=== PATIENT | female | born 1980 | race Caucasian/White ===

== ENCOUNTER 2020-09-03 07:59 | Outpatient (REF) | payer OTHER, SELFPAY ==
--- NOTE | 2020-09-03 | US_ITS ---
EXAMINATION: US ABDOMEN COMPLETE CLINICAL INFORMATION: Liver lesion. COMPARISON: Abdominal ultrasound dated 05/10/2019. TECHNIQUE: Real-time imaging of the abdominal viscera. FINDINGS: PANCREAS: Normal. ABDOMINAL AORTA: The proximal, mid, and distal segments are normal in caliber. INFERIOR VENA CAVA: Visualized portions are normal. LIVER: The liver is normal in size. The liver is normal size, shape, contour. There is diffuse increase in cortical echogenicity without intrahepatic ductal dilatation. There is a complex anechoic cyst left hepatic lobe measuring 0.94 x 0.93 x 0.8 cm. Previously it measured 1.1 x 0.90 x 1.1 cm. GALLBLADDER: Normal. The gallbladder is physiologically distended without evidence of stones, sludge, polyps, wall thickening or pericholecystic fluid. COMMON BILE DUCT: Normal in caliber measuring 0.2 cm in diameter. RIGHT KIDNEY: Normal. No hydronephrosis. No renal calculi or focal parenchymal lesions. The kidney measures 10.4 cm in maximum dimension. LEFT KIDNEY: Normal. No hydronephrosis. No renal calculi or focal parenchymal lesions. The kidney measures 10.4 cm in maximum dimension. SPLEEN: Normal. The spleen measures 9.8 cm in maximum dimension. FREE FLUID: None. IMPRESSION: Complex cyst left hepatic lobe, stable. The rest of abdomen ultrasound exam is unremarkable.
== END 2020-09-03 08:00 | disposition home or self-care (01) ==
LOC: HO.US 07:59
PROVIDERS: PCP Internal Medicine; Visit Provider Internal Medicine
DX: K76.9 Liver disease, unspecified (principal)
CPT/HCPCS: 76700

== ENCOUNTER 2021-11-23 10:57 | Outpatient (REF) | payer OTHER, SELFPAY ==
[2021-11-23 10:59] LABS: MANUAL DIFF FLAG NO
[2021-11-23 11:17] LABS: Basophils Percent Auto 0.1 % (0-2); Eosinophils Absolute Auto 0.4 X10*3/uL (0.0-0.4); Eosinophils Percent Auto 5.2 % (0-4); Hematocrit 38.8 % (37.0-47.0); Hemoglobin 12.3 g/dl (12.0-16.0); Imm Gran Abs Auto 0.02 X10*3/uL (0.00-0.03); Imm Gran Pct Auto 0.3 % (0.0-0.4); Lymphocytes Absolute Auto 2.5 X10*3/uL (1.2-4.9); Lymphocytes Percent Auto 34.2 % (20-40); Mean Corpuscular HGB Conc 31.7 g/dl (31.0-35.0); Mean Corpuscular Hemoglobin 29.7 pg (27.0-33.0); Mean Corpuscular Volume 93.7 fL (80.0-98.0); Mean Platelet Volume 10.2 fL (9.4-12.3); Monocytes Absolute Auto 0.5 X10*3/uL (0.1-1.2); Monocytes Percent Auto 6.1 % (2-11); Neutrophils Percent Auto 54.1 % (45-73); Platelet Count 305 X10*3/uL (160-400); Red Blood Count 4.14 X10*6/uL (4.20-5.50); Red Cell Distribution Width 12.8 % (11.0-16.0); White Blood Count 7.4 X10*3/uL (4.8-10.8)
[2021-11-23 11:43] LABS: Alanine Aminotransferase 15 U/L (0-31); Albumin Level 3.7 g/dL (3.5-5.0); Alkaline Phosphatase 64 U/L (39-117); Anion Gap 8 (12-20); Aspartate Amino Transferase 17 U/L (5-31); Bilirubin Total 0.4 mg/dL (0.0-1.0); Blood Urea Nitrogen 10 mg/dL (9-16); Calcium 9.6 mg/dL (8.4-10.2); Carbon Dioxide 27 mmol/L (22-29); Chloride 109 mmol/L (96-108); Cholesterol 199 mg/dL; Estimated Glomerular Filt Rate > 60; Glucose Fasting 91 mg/dL (60-99); HDL Cholesterol 68 mg/dL; LDL Cholesterol Calculated 97 mg/dl; Potassium 4.1 mmol/L (3.3-5.1); Sodium 140 mmol/L (135-145); Total Protein 6.9 g/dL (6.5-8.0); Triglycerides 170 mg/dL
== END 2021-11-23 10:58 | disposition home or self-care (01) ==
LOC: HO.LNP 10:57
PROVIDERS: Visit Provider Internal Medicine
DX: Z00.00 Encounter for general adult medical examination without abnormal findings (principal); K76.9 Liver disease, unspecified; R31.9 Hematuria, unspecified
CPT/HCPCS: 80053; 80061; 85025

== ENCOUNTER 2023-04-07 16:06 | Outpatient (REF) | payer OTHER, SELFPAY ==
[2023-04-07 16:18] LABS: Appearance Urine Clear; Color Urine Yellow; Glucose Urine UA Negative (Negative); Leukocyte Esterase Urine Large (3+) (Negative); Nitrite Urine Negative (Negative); PH 5.5 (5.0-9.0); Specific Gravity - Urine <= 1.005 (1.005-1.025); UMIC TRIGGER UACC YES; Urine Blood Moderate (2+) (Negative); Urine Ketones Negative (Negative); Urine Protein Negative (Neg-Trace)
[2023-04-07 16:40] LABS: Bacteria Urine Trace (None Seen); Hyaline Casts Urine 0-2 /LPF (0-2); RBC Urine 0-2 /HPF (0-2); Squamous Epithelial Cell Urine 0-2 /HPF (0-2); UACC Culture Trigger YES
== END 2023-04-07 16:07 | disposition home or self-care (01) ==
LOC: HO.LNP 16:06
PROVIDERS: Visit Provider Internal Medicine
DX: N39.0 Urinary tract infection, site not specified (principal)
CPT/HCPCS: 81001; 87086

== ENCOUNTER 2023-04-29 10:43 | Outpatient (REF) | payer OTHER, SELFPAY ==
[2023-04-29 11:04] LABS: Appearance Urine Cloudy; Color Urine Yellow; Glucose Urine UA Negative (Negative); Leukocyte Esterase Urine Negative (Negative); Nitrite Urine Negative (Negative); Specific Gravity - Urine 1.025 (1.005-1.025); Urine Blood Negative (Negative); Urine Ketones Negative (Negative); Urine Protein Trace mg/dL (Neg-Trace)
[2023-04-29 11:22] LABS: Bacteria Urine Trace (None Seen); Hyaline Casts Urine 0-2 /LPF (0-2); RBC Urine 0-2 /HPF (0-2); Squamous Epithelial Cell Urine >20 /HPF (0-2); WBC Urine 0-5 /HPF (0-5)
== END 2023-04-29 10:44 | disposition home or self-care (01) ==
LOC: HO.LNP 10:43
PROVIDERS: Visit Provider Internal Medicine
DX: N39.0 Urinary tract infection, site not specified (principal)
CPT/HCPCS: 81001

== ENCOUNTER 2024-01-09 15:51 | Outpatient (REF) | payer OTHER, SELFPAY ==
[2024-01-09 16:37] LABS: Appearance Urine Turbid; Color Urine Yellow; Glucose Urine UA Negative (Negative); Leukocyte Esterase Urine Moderate (2+) (Negative); Nitrite Urine Negative (Negative); PH 7.5 (5.0-9.0); Specific Gravity - Urine 1.015 (1.005-1.025); UMIC TRIGGER UA YES; Urine Blood Large (3+) (Negative); Urine Ketones Negative (Negative); Urine Protein 100 (2+) mg/dL (Neg-Trace)
[2024-01-09 16:40] LABS: Bacteria Urine None Seen (None Seen); Hyaline Casts Urine 0-2 /LPF (0-2); RBC Urine >20 /HPF (0-2); WBC Urine >50 /HPF (0-5)
== END 2024-01-09 15:52 | disposition home or self-care (01) ==
LOC: HO.LNP 15:51
PROVIDERS: Visit Provider Internal Medicine
DX: N39.0 Urinary tract infection, site not specified (principal)
CPT/HCPCS: 81001; 87086; 87088; 87186

== ENCOUNTER 2024-02-07 10:42 | Outpatient (REF) | payer OTHER, SELFPAY ==
[2024-02-07 12:15] LABS: Appearance Urine Turbid; Color Urine Yellow; PH 7.5 (5.0-9.0)
[2024-02-07 12:16] LABS: Glucose Urine UA Negative (Negative); Leukocyte Esterase Urine Moderate (2+) (Negative); Nitrite Urine Negative (Negative); RBC Urine 0-2 /HPF (0-2); Specific Gravity - Urine 1.015 (1.005-1.025); UMIC TRIGGER UACC YES; Urine Blood Large (3+) (Negative); Urine Ketones Negative (Negative); Urine Protein 100 (2+) mg/dL (Neg-Trace); WBC Urine 0-5 /HPF (0-5)
[2024-02-07 12:17] LABS: Bacteria Urine 1+ (None Seen); Hyaline Casts Urine 0-2 /LPF (0-2); Squamous Epithelial Cell Urine 0-2 /HPF (0-2)
== END 2024-02-07 10:43 | disposition home or self-care (01) ==
LOC: HO.LNP 10:42
PROVIDERS: Visit Provider Internal Medicine
DX: N39.0 Urinary tract infection, site not specified (principal); R31.9 Hematuria, unspecified
CPT/HCPCS: 81001

== ENCOUNTER 2024-02-17 11:00 | Outpatient (REF) | payer OTHER, SELFPAY ==
[2024-02-17 12:07] LABS: Appearance Urine Clear; Color Urine Yellow; Glucose Urine UA Negative (Negative); Leukocyte Esterase Urine Negative (Negative); Nitrite Urine Negative (Negative); PH 5.5 (5.0-9.0); Urine Blood Negative (Negative); Urine Ketones Negative (Negative); Urine Protein Negative (Neg-Trace)
[2024-02-17 12:12] LABS: Bacteria Urine None Seen (None Seen); Hyaline Casts Urine 0-2 /LPF (0-2); RBC Urine 0-2 /HPF (0-2); WBC Urine 0-5 /HPF (0-5)
== END 2024-02-17 11:01 | disposition home or self-care (01) ==
LOC: HO.LNP 11:00
PROVIDERS: Visit Provider Internal Medicine
DX: R31.9 Hematuria, unspecified (principal)
CPT/HCPCS: 81001

== ENCOUNTER 2024-06-01 22:33 | Emergency (ER) | payer BC, SELFPAY ==
--- NOTE | 2024-06-01 | ECG_ITS ---
Test Reason : CP Blood Pressure : / mmHG Vent. Rate : 059 BPM Atrial Rate : 059 BPM P-R Int : 140 ms QRS Dur : 092 ms QT Int : 402 ms P-R-T Axes : 062 -37 046 degrees QTc Int : 397 ms Sinus bradycardia Left axis deviation Abnormal ECG When compared with ECG of 11-JAN-2018 22:38, Incomplete right bundle branch block is no longer Present Referred By: Generic ED Physician Electronically Signed By:RIVKA CROSS MD
[2024-06-01 22:39] VITALS: BP 120/84; BP 123/83; PULSE 59; PULSE 66; RESP 16; TEMP 36.9; O2SAT 96; O2SAT 98; BMI 23.2
[2024-06-01 23:00] LABS: MANUAL DIFF FLAG NO
[2024-06-01 23:01] LABS: Basophils Percent Auto 0.4 % (0-2); Eosinophils Absolute Auto 0.3 X10*3/uL (0.0-0.4); Eosinophils Percent Auto 2.7 % (0-4); Hematocrit 36.6 % (37.0-47.0); Hemoglobin 12.6 g/dl (12.0-16.0); Imm Gran Abs Auto 0.03 X10*3/uL (0.00-0.03); Imm Gran Pct Auto 0.3 % (0.0-0.4); Lymphocytes Absolute Auto 2.8 X10*3/uL (1.2-4.9); Lymphocytes Percent Auto 25.9 % (20-40); Mean Corpuscular HGB Conc 34.4 g/dl (31.0-35.0); Mean Corpuscular Hemoglobin 31.1 pg (27.0-33.0); Mean Corpuscular Volume 90.4 fL (80.0-98.0); Mean Platelet Volume 9.3 fL (9.4-12.3); Monocytes Absolute Auto 0.7 X10*3/uL (0.1-1.2); Monocytes Percent Auto 6.2 % (2-11); Neutrophils Absolute Auto 6.9 x10*3/uL (2.0-8.3); Neutrophils Percent Auto 64.5 % (45-73); Platelet Count 310 X10*3/uL (160-400); Red Blood Count 4.05 X10*6/uL (4.20-5.50); Red Cell Distribution Width 12.7 % (11.0-16.0); White Blood Count 10.7 X10*3/uL (4.8-10.8)
--- NOTE | 2024-06-01 23:16 | ED.CHESTPAIN ---
HPI - Chest Pain General Chief Complaint: Chest Pain Stated Complaint: chest pain center of chest radiating to back Time Seen by Provider: 06/01/24 23:14 Source: patient Mode of arrival: ambulatory Limitations: no limitations History of Present Illness ED Provider: douglas HPI narrative: Patient with no known cardiac history nonsmoker nonalcoholic work out thin built comes in for 3 days of midsternal chest pain sore with throbbing feeling reproducible on palpation no relation of the pain with exertion no shortness a breath no diaphoresis pain comes and goes lasting only for few minutes no chest pain when examined Related Data Allergies Allergy/AdvReac Type Severity Reaction Status Date / Time No Known Allergies Allergy Verified 06/01/24 22:41 Review of Systems Review of Systems: Yes all other systems are reviewed and are negative [facility] Social History Social History Smoked in Last 30 Days: No Use of substances other than those prescribed or required for medical reasons: No Advance Directives: No Advance Directives Information Provided: No Advance Directives Date on File: 09/03/20 Physical Exam Vital Signs: Vital Signs: Last Vital Signs Temp 98.5 F 06/01/24 23:56 Pulse 59 06/01/24 23:56 Resp 16 06/01/24 23:56 BP 123/83 06/01/24 23:56 Pulse Ox 98 06/01/24 23:56 O2 Del Method Room Air 06/01/24 23:56 BMI result Body Mass Index 23.2 Appearance: Alert. Oriented X3. No acute distress. Eyes: No pallor or icterus ENT: Pharynx normal. Oral Mucosa moist Neck: Normal inspection. Neck supple. CVS: Normal heart rate and rhythm. Pulses normal. Tenderness 2nd intercostal space left side Respiratory: No respiratory distress. Equal air entry bilateral, Abdomen: Soft and nontender. Bowel sounds are present, no mass palpable, no CVA tenderness Skin: Skin warm and dry. Normal skin color. Normal skin turgor. Extremities: No lower extremity edema. No calf tenderness Neuro: Oriented X 3. Medical Decision Making Medical Decision Making [facility] Narrative: Patient has atypical chest pain with low risk factors heart score of 0 EKG without ischemic changes high sensitive troponin negative pain is reproducible likely pain from costochondritis advised to take ibuprofen/Advil, follow up as outpatient Differential Diagnosis Differential Diagnoses: The differential diagnosis associated with the presentation includes Chest wall pain/pericarditis/ACS Lab Data MDM Lab Attestation statement: I reviewed the patient's lab results. 06/01/24 22:55 06/01/24 22:55 Labs: Lab Results 06/01/24 Range/Units 22:55 WBC 10.7 (4.8-10.8) X10*3/uL RBC 4.05 L (4.20-5.50) X10*6/uL Hgb 12.6 (12.0-16.0) g/dl Hct 36.6 L (37.0-47.0) % MCV 90.4 (80.0-98.0) fL MCH 31.1 (27.0-33.0) pg MCHC 34.4 (31.0-35.0) g/dl RDW 12.7 (11.0-16.0) % Plt Count 310 (160-400) X10*3/uL MPV 9.3 L (9.4-12.3) fL Immature Gran % (Auto) 0.3 (0.0-0.4) % Neut % (Auto) 64.5 (45-73) % Lymph % (Auto) 25.9 (20-40) % Taney % (Auto) 6.2 (2-11) % Eos % (Auto) 2.7 (0-4) % Baso % (Auto) 0.4 (0-2) % Lymph # (Auto) 2.8 (1.2-4.9) X10*3/uL Taney # (Auto) 0.7 (0.1-1.2) X10*3/uL Eos # (Auto) 0.3 (0.0-0.4) X10*3/uL Baso # (Auto) 0.0 (0.0-0.2) X10*3/uL Abs Immat Gran (auto) 0.03 (0.00-0.03) X10*3/uL Absolute Neuts (auto) 6.9 (2.0-8.3) x10*3/uL Absolute Nucleated RBC 0.000 (0.0-0.012) X10*3/uL Nucleated RBC % (auto) 0.0 (0.0-0.2) /100WBC Sodium 140 (135-145) mmol/L Potassium 3.6 (3.3-5.1) mmol/L Chloride 108 (96-108) mmol/L Carbon Dioxide 23 (22-29) mmol/L Anion Gap 13 (12-20) BUN 10 (9-16) mg/dL Creatinine 0.81 (0.5-1.4) mg/dL Estim Creat Clear Calc 83.0 Estimated GFR > 60 Random Glucose 114 (60-115) mg/dL Calcium 9.3 (8.4-10.2) mg/dL Total Bilirubin 0.2 (0.0-1.0) mg/dL AST 13 (5-31) U/L ALT 8 (0-31) U/L Alkaline Phosphatase 94 (39-117) U/L Troponin I High Sens < 2.7 (<3.5-17.0) ng/L Total Protein 6.9 (6.5-8.0) g/dL Albumin 3.9 (3.5-5.0) g/dL Independent Interpretation I performed an independent interpretation of an: EKG Interpretation: Sinus bradycardia with heart rate 59 beats per minute left axis deviation no acute ST-T changes no acute ischemia Scores Heart Score History: -0- slightly suspicious ECG: -0- normal Age: -0- < or = 45 Risk factory: -0- no risk factors known Troponin: -0- < or = normal limit Score: 0 Risk: 1.7% Discharge Plan Discharge Clinical Impression: Costalchondritis Patient Disposition: Home, Self-Care Instructions: Costochondritis (ED) Additional Instructions: At this time your workup is negative for significant coronary artery disease Your pain is likely from inflammation of the cartilage Take Advil/Motrin for pain Follow with PCP Interventions: ED Discharge Assessment Last Done: 06/01/24 23:56 Discharge Date/Time: 06/01/24 23:56 Print Language: Romansh
[2024-06-01 23:17] LABS: Alanine Aminotransferase 8 U/L (0-31); Albumin Level 3.9 g/dL (3.5-5.0); Alkaline Phosphatase 94 U/L (39-117); Anion Gap 13 (12-20); Aspartate Amino Transferase 13 U/L (5-31); Bilirubin Total 0.2 mg/dL (0.0-1.0); Blood Urea Nitrogen 10 mg/dL (9-16); Calcium 9.3 mg/dL (8.4-10.2); Carbon Dioxide 23 mmol/L (22-29); Chloride 108 mmol/L (96-108); Estimated Glomerular Filt Rate > 60; Glucose Random 114 mg/dL (60-115); Potassium 3.6 mmol/L (3.3-5.1); Sodium 140 mmol/L (135-145); Total Protein 6.9 g/dL (6.5-8.0)
[2024-06-01 23:26] LABS: Troponin-I High Sensitivity < 2.7 ng/L (<3.5-17.0)
[2024-06-01 23:30] VITALS: PULSE 59
[2024-06-01 23:56] VITALS: BP 123/83; PULSE 59; RESP 16; TEMP 36.9; O2SAT 98
== END 2024-06-01 23:56 | disposition home or self-care (01) ==
LOC: HO.ED 23:49
PROVIDERS: Emergency Provider Internal Medicine; PCP Internal Medicine
DX: M94.0 Chondrocostal junction syndrome [Tietze] (principal)
CPT/HCPCS: 36415; 80053; 84484; 85025; 93005; 99283; 99285

== ENCOUNTER → 2024-06-01 22:36 | Outpatient (BNV) | payer BC, SELFPAY | PROVIDERS: Emergency Provider Internal Medicine; PCP Internal Medicine; Visit Provider Internal Medicine Cardiovascular Disease | DX: R94.31 Abnormal electrocardiogram [ECG] [EKG] (principal) | CPT/HCPCS: 93010 ==

== ENCOUNTER 2025-11-10 22:59 | Emergency (ER) | payer BC, SELFPAY ==
--- OUTSIDE RECORDS SUMMARY | 2024-06-04 09:35 | XMS_ITS ---
Author Organization Jeremy Stewart MD Address [address] [place] [phone] Care Team Providers Care Cement Mixer Name Role Phone Jeremy Stewart Primary Care Provider [phone] REASON FOR VISIT ER Encounters Encounter Location Date Provider Diagnosis Jeremy Stewart MD [address] [place] [phone] 06/04/2024 Jeremy Stewart Plan Of Treatment No Information Progress Notes * Leti CREWS MDOB:[birth year] (43 yo F)Acc No.[id number]:06/04/2024 Patient: Leti HOLDER :1980 A ge:43 Y S ex:Female Address:[address] [place] [id number] * true * Date: Generated for Printi ng/Fabrynng/eTransmitting on: 01:14 AM EST
--- OUTSIDE RECORDS SUMMARY | 2024-10-15 06:30 | XMS_ITS ---
Author Organization Jeremy Stewart MD Address [address] [place] [phone] Care Team Providers Care Medical Liaison Name Role Phone Jeremy Stewart Primary Care Provider [phone] Allergies No Known Allergies REASON FOR VISIT SICK 1 WEEK, SINUS, c/o sore throat cough, sinus pain, sinus congestion Tested negative for Covid 10-13-24, Video [phone] Medications Medication SIG (Take, Route, Frequency, Duration) Notes Start Date End Date Status ProAir HFA 108 (90 Base) MCG/ACT 2 puffs as needed Inhalation every 6 hrs for 30 days 09/08/2018 Not-Taking Ibuprofen 800 MG 1 tablet with food o r milk as needed Orally Three times a day for 30 Not-Grant ing Cymbalta 20 MG 1 capsule Orally Onc e a day Not-Taking LORazepam 1 MG TAKE 1 TABLET BY SURI EVERY DAY AT BEDTIME NEEDED for 30 09/24/2022 Not-Taking Albuterol Sulfate HFA 108 (90 Base) MCG/ACT INHALE 1 PUFF BY MOUTH EVERY 4 HOURS NEEDED for 33 Not-Taking ZyrTEC Allergy 10 MG 1 tablet as needed Orally Once a day Not-Taking Zithromax Z-Palmer 250 MG 2 tablet on the f irst day, then 1 tablet daily for 4 days Orally Once a day for 5 day(s) 10/15/2024 Active DULoxetine HCl 30 MG TAKE 1 CAPSULE BY M OUTH EVERY DAY for 90 Active Tri-Sprintec 0.18/0.215/0.25 MG-35 MCG 1 tablet Orally Once a day for 28 day(s) Active Imitrex 100 MG 1 tablet as needed o ne time Orally Once a day for 7 days 02/06/2016 Not-Taking Vital Signs Height 66 in 10/15/2024 Weight 135 lbs 10/15/2024 BMI 21.79 kg/m2 10/15/2024 weight at home is 135 Encounters Encounter Location Date Provider Diagnosis Jeremy Stewart MD [address] [facility] [address] [place] [phone] 10/15/2024 Jeremy Stewart Bronchitis J40 Assessments Encounter Date Diagnosis (ICD Code) Assessment Notes Treatment Notes Treatment Clinical Notes Section Notes 10/15/2024 Bronchitis (ICD-10 - J40) patient verbalized understanding of emdication and directions for use Plan Of Treatment Medication Medication Name Sig Start Date Stop Date Notes Zithromax Z-Palmer 250 MG 2 tablet on the f irst day, then 1 tablet daily for 4 days Orally Once a day for 5 day(s) 10/15/2024 Treatment Notes Assessment Notes Bronchitis patient verbalized u nderstanding of emdication and directions for use Progress Notes * Leti CREWS MDOB:[birth year] (43 yo F)Acc No.[id number]:10/15/2024 Patient: Leti HOLDER Provider: Claudio Stewart MD :1980 A ge:43 Y S ex:Female Date:10/15/2024 Address:[address] [place], [place] [phone] Subjective: * Chief Complaints: * S ICK 1 WEEK, SINUSc/o sore throat cough, sinus pain, sinus congestion Tested negative for Covid 23-45-06Gbazd [phone] * HPI: S ymptom(s): Telehealth L ocation of provider rendering services: [address], [address], ocation of patient: a t address listed in demographics for today's visit, P atsophie identification confirmed using: N rola, , SSN, Insurance information, T elehealth method: V ideo conference where patient is visible to the provider of care, C onsent: P atient verbally consented to treatment, Patient verbally consented to billing insurance company, Patient informed of any privacy concerns related to method of visit. patient is a 43 y female video telehealh visit,here for sinus infection and sore throat. for one week. still feeling poorly. tested negative for covid. * ROS: G eneral/Constitutional: Denies C hills. D enies F atigue. D enies F ever. D enies H eadache. E NT: Patient denies d ecreased sense of smell , any loss of taste . A dmits S inus pain. A dmits S ore throat. R espiratory: Denies C ough. D enies S hortness of breath at rest. D enies S hortness of breath with exertion. G astrointestinal: Denies D iarrhea. D enies N ausea. M usculoskeletal: Patient denies m uscle aches. P eripheral Vascular: Patient denies r ed and blue toes. * Medical History: * Surgical History: * Hospitalization/Major Diagno stic Procedure: * Medications: T akingTri-Sprintec 0.18/0.215/0.25 MG-35 MCG Tablet 1 tablet Orally Once a dayDULoxetine HCl 30 MG Capsule Delayed Release Particles TAKE 1 CAPSULE BY MOUTH EVERY DAY Taking Tri-Sprintec 0.18/0.215/0.25 MG-35 MCG Tablet 1 tablet Orally Once a dayTaking DULoxetine HCl 30 MG Capsule Delayed Release Particles TAKE 1 CAPSULE BY MOUTH EVERY DAY Not-Taking/PRNAlbuterol Sulfate HFA 108 (90 Base) MCG/ACT Aerosol Solution INHALE 1 PUFF BY MOUTH EVERY 4 HOURS NEEDED LORazepam 1 MG Tablet TAKE 1 TABLET BY MOUTH EVERY DAY AT BEDTIME NEEDED Cymbalta 20 MG Capsule Delayed Release Particles 1 capsule Orally Once a dayIbuprofen 800 MG Tablet 1 tablet with food or milk as needed Orally Three times a dayProAir HFA 108 (90 Base) MCG/ACT Aerosol Solution 2 puffs as needed Inhalation every 6 hrsZyrTEC Allergy 10 MG Tablet 1 tablet as needed Orally Once a dayImitrex 100 MG Tablet 1 tablet as needed one time Orally Once a dayMedication List reviewed and reconciled with the patientNot-Taking/PRN Albuterol Sulfate HFA 108 (90 Base) MCG/ACT Aerosol Solution INHALE 1 PUFF BY MOUTH EVERY 4 HOURS NEEDED Not-Taking/PRN LORazepam 1 MG Tablet TAKE 1 TABLET BY MOUTH EVERY DAY AT BEDTIME NEEDED Not-Taking/PRN Cymbalta 20 MG Capsule Delayed Release Particles 1 capsule Orally Once a dayNot-Taking/PRN Ibuprofen 800 MG Tablet 1 tablet with food or milk as needed Orally Three times a dayNot-Taking/PRN ProAir HFA 108 (90 Base) MCG/ACT Aerosol Solution 2 puffs as needed Inhalation every 6 hrsNot- Taking/PRN ZyrTEC Allergy 10 MG Tablet 1 tablet as needed Orally Once a dayNot-Taking/PRN Imitrex 100 MG Tablet 1 tablet as needed one time Orally Once a dayMedication List reviewed and reconciled with the patient * Allergies: N .K.D.A.yes[Allergies Verified] Objective: * Vitals: H t: 66, Wt:135, BMI:21.79 weight at home is 135. * Examination: G eneral Examination: GENERAL APPEARANCE: a lert, well hydrated, in no distress.? Assessment: * Assessment: 1. B jas - J40 (Primary) Plan: * Treatment: * Procedure Codes: * * Sign off status: Completed true * Provider: Claudio Stewart MD Date: 12/16/2023 Generated for Gopi main/Deisy/Linette on: 01:14 AM EST History and Physical Notes * HPI (History of Present Illness) Category Sub-Category Detail Notes Category Not es Symptom(s) [facility] [address], [address] patient is a 43 y female video telehealh visit,here for sinus infection and sore throat. for one week. still feeling poorly. tested negative for covid Location of patient:: at address listed in demographics for today's visit Patient identification confirmed using:: Name, , SSN, Insurance information Telehealth method:: Video co nference where patient is visible to the provider of care Consent:: Patient verbally c onsented to treatment, Patient verbally consented to billing insurance company, Patient informed of any privacy concerns related to method of visit Examination Category Sub-Category Detail Notes Category Not es General Examination GENERAL APPEARANCE: alert, w ell hydrated, in no distress
--- OUTSIDE RECORDS SUMMARY | 2025-06-07 07:19 | XMS_ITS ---
Author Organization Jeremy Stewart MD Address [address] [place] [phone] Care Team Providers Care Bundle Clerk Name Role Phone Jeremy Stewart Primary Care Provider REASON FOR VISIT Annual PE Encounters Encounter Location Date Provider Diagnosis Jeremy Stewart MD [address] [place] [phone] 06/07/2025 Jeremy Stewart Plan Of Treatment No Information Progress Notes * Leti CREWS MDOB:[birth year] (44 yo F)Acc No.[id number]:06/07/2025 Patient: Leti HOLDER :1980 A ge:44 Y S ex:Female Address:[address] [place] [id number] * true * Date: Generated for Printi ng/Fabrynng/eTransmitting on: 01:14 AM EST
--- OUTSIDE RECORDS SUMMARY | 2025-09-10 06:15 | XMS_ITS ---
Author Organization Jeremy Stewart MD Address [address] [place] [phone] Care Team Providers Care Technical Laboratory Asst Name Role Phone Jeremy Stewart Primary Care Provider Allergies No Known Allergies REASON FOR VISIT CONGESTION, COUGH, Video [phone] Medications Medication SIG (Take, Route, Frequency, Duration) Notes Start Date End Date Status LORazepam 0.5 MG 1 tablet at bedtime as needed Orally Once a day for 10 days 09/10/2025 Active Zithromax Z-Palmer 250 MG 2 tablet on the day, then 1 tablet daily for 4 days Orally Once a day for 5 day(s) 09/10/2025 Active Albuterol Sulfate HFA 108 (90 Base) MCG/ACT 1 puff as needed Inhalation every 4 hrs for 30 days 09/10/2025 Active Cymbalta 20 MG 1 capsule Orally Onc e a day Not-Taking Tri-Sprintec 0.18/0.215/0.25 MG-35 MCG 1 tablet Orally Once a day for 28 day(s) Not-Taking Ibuprofen 800 MG 1 tablet with food o r milk as needed Orally Three times a day for 30 Active Albuterol Sulfate HFA 108 (90 Base) MCG/ACT INHALE 1 PUFF BY MOUTH EVERY 4 HOURS NEEDED for 33 Active DULoxetine HCl 30 MG TAKE 1 CAPSULE BY M OUTH EVERY DAY for 90 Active ZyrTEC Allergy 10 MG 1 tablet as needed Orally Once a day Active ProAir HFA 108 (90 Base) MCG/ACT 2 puffs as needed Inhalation every 6 hrs for 30 days 09/08/2018 Active Vital Signs Weight 35 lbs 09/10/2025 weight at home is 135 BP not taken at home no temp Encounters Encounter Location Date Provider Diagnosis Jeremy Stewart MD [address] [facility] [address] [place] [phone] 09/10/2025 Jeremy Stewart Bronchitis J40 Assessments Encounter Date Diagnosis (ICD Code) Assessment Notes Treatment Notes Treatment Clinical Notes Section Notes 09/10/2025 Bronchitis (ICD-10 - J40) Plan Of Treatment Medication Medication Name Sig Start Date Stop Date Notes LORazepam 0.5 MG 1 tablet at bedtime as needed Orally Once a day for 10 days 09/10/2025 Zithromax Z-Palmer 250 MG 2 tablet on the f irst day, then 1 tablet daily for 4 days Orally Once a day for 5 day(s) 09/10/2025 Albuterol Sulfate HFA 108 (9 0 Base) MCG/ACT 1 puff as needed Inhalation every 4 hrs for 30 days 09/10/2025 Progress Notes * Leti CREWS MDOB:[birth year] (44 yo F)Acc No.[id number]:09/10/2025 Patient: Jaz SANDY Leti Jose Alberto Provider: Claudio Stewart MD :1980 A ge:44 Y S ex:Female Date:09/10/2025 Address:[address] [place], [place] [phone] Subjective: * Chief Complaints: * C ONGESTION, COUGHVideo [phone] * HPI: S ymptom(s): Telehealth L ocation of provider rendering services: [address], [address], ocation of patient: a t address listed in demographics for today's visit, P atient identification confirmed using: SHANE De La Garza ame, T elehealth method: V ideo conference where patient is visible to the provider of care, C onsent: P atient verbally consented to treatment, Patient verbally consented to VidBid, Patient informed of any privacy concerns related to method of visit, Leanna ruiz time spend talking with patient (minutes) 2 0. patient is a 44 yo female video telehealth visit , with complaint of congestion, cough. has sinus congestion and some wheezing . * ROS: G eneral/Constitutional: Denies C hills. A dmits F atigue. D enies F ever. D enies H eadache. E NT: Patient complaining of c /o post nasal drip x 4 weeks. A dmits S inus pain. D enies S ore throat. R espiratory: Admits C ough. D enies S hortness of breath at rest. D enies S hortness of breath with exertion. D enies W heezing. G astrointestinal: Denies D iarrhea. D enies N ausea. * Medical History: * Surgical History: * Hospitalization/Major Diagno stic Procedure: * Medications: T akingDULoxetine HCl 30 MG Capsule Delayed Release Particles TAKE 1 CAPSULE BY MOUTH EVERY DAY Albuterol Sulfate HFA 108 (90 Base) MCG/ACT Aerosol Solution INHALE 1 PUFF BY MOUTH EVERY 4 HOURS NEEDED Ibuprofen 800 MG Tablet 1 tablet with food or milk as needed Orally Three times a day ProAir HFA 108 (90 Base) MCG/ACT Aerosol Solution 2 puffs as needed Inhalation every 6 hrs ZyrTEC Allergy 10 MG Tablet 1 tablet as needed Orally Once a day Taking DULoxetine HCl 30 MG Capsule Delayed Release Particles TAKE 1 CAPSULE BY MOUTH EVERY DAY Taking Albuterol Sulfate HFA 108 (90 Base) MCG/ACT Aerosol Solution INHALE 1 PUFF BY MOUTH EVERY 4 HOURS NEEDED Taking Ibuprofen 800 MG Tablet 1 tablet with food or milk as needed Orally Three times a day Taking ProAir HFA 108 (90 Base) MCG/ACT Aerosol Solution 2 puffs as needed Inhalation every 6 hrs Taking ZyrTEC Allergy 10 MG Tablet 1 tablet as needed Orally Once a day Not-Taking/PRNTri-Sprintec 0.18/0.215/0.25 MG-35 MCG Tablet 1 tablet Orally Once a day Cymbalta 20 MG Capsule Delayed Release Particles 1 capsule Orally Once a day Medication List reviewed and reconciled with the patientNot-Taking/PRN Tri- Sprintec 0.18/0.215/0.25 MG-35 MCG Tablet 1 tablet Orally Once a day Not-Taking/PRN Cymbalta 20 MG Capsule Delayed Release Particles 1 capsule Orally Once a day Medication List reviewed and reconciled with the patient * Allergies: N .K.D.A.yes[Allergies Verified] Objective: * Vitals: W t: 35, Wt-k.88. weight at home is 135 BP not taken at home no temp. * Examination: G eneral Examination: GENERAL APPEARANCE: a lert, well hydrated, in no distress.? SKIN: g ood turgor. Assessment: * Assessment: 1. B jas - Jaz40 (Primary) Plan: * Treatment: 2. O thers Start LORazepam Tablet, 0.5 MG, 1 tablet at bedtime as needed, Orally, Once a day, 10 days, 10 Tablet. * Procedure Codes: * * Sign off status: Completed true * Provider: Claudio Stewart MD Date: 1 Generated for Gopi mani/Deisy/eTransmitting on: 01:15 AM EST History and Physical Notes * HPI (History of Present Illness) Category Sub-Category Detail Notes Category Not es Symptom(s) Telehealth Location of [facility] rendering services:: [address], [address] patient is a 44 yo female video telehealth visit , with complaint of congestion, cough. has sinus congestion and some wheezing . Location of patient:: at address listed in demographics for today's visit Patient identification confirmed using:: Name, Telehealth method:: Video co nference where patient is visible to the provider of care Consent:: Patient verbally c onsented to treatment, Patient verbally consented to billing insurance company, Patient informed of any privacy concerns related to method of visit Total time spend talking with patient (m inutes): 20 Examination Category Sub-Category Detail Notes Category Not es General Examination GENERAL APPEARANCE: alert, w ell hydrated, in no distress SKIN: good turgor
--- OUTSIDE RECORDS SUMMARY | 2025-10-18 06:45 | XMS_ITS ---
Author Organization Jeremy Stewart MD Address [address] [place] [phone] Care Team Providers Care Press Set Up Name Role Phone Jeremy Stewart Primary Care Provider Allergies No Known Allergies REASON FOR VISIT ? sinus infection also of post nasal drip leaving for [place] 10-23-25, Video [phone] Medications Medication SIG (Take, Route, Frequency, Duration) Notes Start Date End Date Status Cymbalta 20 MG 1 capsule Orally Onc e a day Not-Taking Tri-Sprintec 0.18/0.215/0.25 MG-35 MCG 1 tablet Orally Once a day for 28 day(s) Not-Taking Albuterol Sulfate HFA 108 (90 Base) MCG/ACT INHALE 1 PUFF BY MOUTH EVERY 4 HOURS NEEDED for 33 Not-Taking LORazepam 0.5 MG 1 tablet at bedtime as needed Orally Once a day for 10 days 09/10/2025 Active Zithromax Z-Palmer 250 MG 2 tablet on the irst day, then 1 tablet daily for 4 days Orally Once a day for 5 day(s) 10/18/2025 Active ZyrTEC Allergy 10 MG 1 tablet as needed Orally Once a day Active ProAir HFA 108 (90 Base) MCG/ACT 2 puffs as needed Inhalation every 6 hrs for 30 days 09/08/2018 Not-Taking Ibuprofen 800 MG 1 tablet with food o r milk as needed Orally Three times a day for 30 Not-Grant ing DULoxetine HCl 30 MG TAKE 1 CAPSULE BY M OUTH EVERY DAY for 90 Active Vital Signs Height 66 in 10/18/2025 Weight 135 lbs 10/18/2025 BMI 21.79 kg/m2 10/18/2025 weight is 135 BP not taken n o temp Encounters Encounter Location Date Provider Diagnosis Jeremy Stewart MD [address] [place], [place] [phone] 10/18/2025 Jeremy Stewart Bronchitis J40 Assessments Encounter Date Diagnosis (ICD Code) Assessment Notes Treatment Notes Treatment Clinical Notes Section Notes 10/18/2025 Bronchitis (ICD-10 - J40) have her use her inhaler and use afrin before she flies for a few days to keep sinuses uncongested, patient verbalized nderstanding of medication and directions for use Plan Of Treatment Medication Medication Name Sig Start Date Stop Date Notes Zithromax Z-Palmer 250 MG 2 tablet on the f irst day, then 1 tablet daily for 4 days Orally Once a day for 5 day(s) 10/18/2025 Treatment Notes Assessment Notes Bronchitis have her use her inh aler and use afrin before she flies for a few days to keep sinuses uncongested, patient verbalized nderstanding of medication and directions for use Progress Notes * Leti CREWS MDOB:[birth year] (44 yo F)Acc No.[id number]:10/18/2025 Patient: Leti HOLDER Provider: Claudio Stewart MD :1980 A ge:44 Y S ex:Female Date:10/18/2025 Address:[address] [place], [place] [phone] Subjective: * Chief Complaints: * ? sinus infection also of post nasal drip leaving for [place] [id number] [phone] * HPI: S ymptom(s): Telehealth L ocation of provider rendering services: [address], [address], L ocation of patient: a t address listed in demographics for today's visit, Nhi tomas identification confirmed using: Holli canela, SHANE, T elehealth method: V ideo conference where patient is visible to the provider of care, C onsent: P atient verbally consented to treatment, Patient verbally consented to billing insurance company, Patient informed of any privacy concerns related to method of visit, T otal time spend talking with patient (minutes) 2 0. patient is a 44 yo female video telehealth visit with complaint of sinus infection with post nasal drip[/ having wheezing. in chest. never using inhaler at present. still with yellow green phlegm. * ROS: G eneral/Constitutional: Denies C hills. D enies F atigue. D enies F ever. A dmits H eadache, c /o sinus headache. E NT: Patient complaining of c /o post nasal drip. D enies?Sore throat. R espiratory: Denies C ough. D enies S hortness of breath at rest. D enies S hortness of breath with exertion. G astrointestinal: Denies D iarrhea. D enies N ausea. * Medical History: * Surgical History: * Hospitalization/Major Diagno stic Procedure: * Medications: T akingDULoxetine HCl 30 MG Capsule Delayed Release Particles TAKE 1 CAPSULE BY MOUTH EVERY DAY ZyrTEC Allergy 10 MG Tablet 1 tablet as needed Orally Once a day LORazepam 0.5 MG Tablet 1 tablet at bedtime as needed Orally Once a day Taking DULoxetine HCl 30 MG Capsule Delayed Release Particles TAKE 1 CAPSULE BY MOUTH EVERY DAY Taking ZyrTEC Allergy 10 MG Tablet 1 tablet as needed Orally Once a day Taking LORazepam 0.5 MG Tablet 1 tablet at bedtime as needed Orally Once a day Not- Taking/PRNIbuprofen 800 MG Tablet 1 tablet with food or milk as needed Orally Three times a day ProAir HFA 108 (90 Base) MCG/ACT Aerosol Solution 2 puffs as needed Inhalation every 6 hrs Albuterol Sulfate HFA 108 (90 Base) MCG/ACT Aerosol Solution INHALE 1 PUFF BY MOUTH EVERY 4 HOURS NEEDED Tri-Sprintec 0.18/0.215/0.25 MG-35 MCG Tablet 1 tablet Orally Once a day Cymbalta 20 MG Capsule Delayed Release Particles 1 capsule Orally Once a day Medication List reviewed and reconciled with the patientNot-Taking/PRN Ibuprofen 800 MG Tablet 1 tablet with food or milk as needed Orally Three times a day Not-Taking/PRN ProAir HFA 108 (90 Base) MCG/ACT Aerosol Solution 2 puffs as needed Inhalation every 6 hrs Not-Taking/PRN Albuterol Sulfate HFA 108 (90 Base) MCG/ACT Aerosol Solution INHALE 1 PUFF BY MOUTH EVERY 4 HOURS NEEDED Not-Taking/PRN Tri-Sprintec 0.18/0.215/0.25 MG-35 MCG Tablet 1 tablet Orally Once a day Not-Taking/PRN Cymbalta 20 MG Capsule Delayed Release Particles 1 capsule Orally Once a day Medication List reviewed and reconciled with the patient * Allergies: N .K.D.A.yes[Allergies Verified] Objective: * Vitals: H t: 66, Wt: 135, BMI:21.79, Wt-k.24. weight is 135 BP not taken no temp. * Examination: G eneral Examination: GENERAL APPEARANCE: a lert, well hydrated, in no distress.? Assessment: * Assessment: 1. B jas - Inés (Primary) Plan: * Treatment: * Procedure Codes: * * Sign off status: Completed true * Provider: Claudio Stewart MD Date: 12/19/2024 Generated for Gopi main/Deisy/Linette on: 01:14 AM EST History and Physical Notes * HPI (History of Present Illness) Category Sub-Category Detail Notes Category Not es Symptom(s) Telehealth Location of [facility] rendering services:: [address], [address] patient is a 44 yo female video telehealth visit with complaint of sinus infection with post nasal drip[/ having wheezing. in chest. never using inhaler at present. still with yellow green phlegm. Location of patient:: at address listed in [...]
--- OUTSIDE RECORDS SUMMARY | 2025-11-10 10:00 | XMS_ITS | Encounter Summary ---
Author Organization [facility] Address [address] [place] [phone] Phone Care Team Providers Care Benefits Manager Name Role Phone Jeremy Stewart MD Primary Care Provider Reason for Visit * Reason Comments Cough Cough post nasal dri p and wheezing x 1 month. Was tx'd twice with a z-pack.(Seen virtually) Inhaler Q4H helps a little. Encounter Details Date Type Department Care Team (Late st Contact Info) Description 11/10/2025 10:00 AM EST Nurse Only [facility] Urgent Care at [address] [address] Ana Malloy PA-C, MS [address] [place], [place] [phone] Subacute cough (Primary Dx) Social History Tobacco Use Types Packs/Day Years Used Date Smoking Tobacco: Never Alcohol Use Standard Drinks/Week Comments Yes 4 (1 standard drink = 0.6 oz pur e alcohol) Education Answer Date Recorded Are you interested in more education? Not on valerie e 03/20/2023 Are you concerned about learning? Not on file 03/20/2023 No 03/20/2023 No 03/20/2023 Digital Access Answer Date Recorded No 04/09/2023 No 04/09/2023 Reliable internet access at home? Not on file 04/09/2023 Device with a working camera? 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, previously a teacher Not on file Not on file Not on file documented as of this encounter Last Filed Vital Signs Vital Sign Reading Time Taken Comments Blood Pressure 111/80 11/10/2025 9:34 AM EST Pulse 70 11/10/2025 9:34 AM EST Temperature 36.6 C (97.9 F) 11/10/2025 9:34 AM EST Respiratory Rate 18 11/10/2025 9:34 AM EST Oxygen Saturation 99% 11/10/2025 9:34 AM EST Inhaled Oxygen Concentration - - Weight 61.2 kg (135 lb) 11/10/2025 9:34 AM EST Height - - Body Mass Index 21.79 11/06/2023 9:12 AM EST documented in this encounter Progress Notes * Ana Malloy PA-C, MS - 11/10/2025 10:00 AM EST Images from the original note were not included. Subjective: Patient ID: Leti De Paz is a 44 y.o. female. HPI Patient is a 44-year-old female with past medical history significant for degenerative joint disease presenting with concerns for cough x 6-8 weeks. Patient reports that she can hear a rattling in her chest. Reports that she has been evaluated virtually from her primary care twice and has been treated with 2 Z-Palmer's. Reports that she finished the last 1 about 2 to 3 days ago. Reports that she does feel like the rattling has improved however in the last few nights, she has woke up anxious that she has chest congestion and may be having trouble breathing. States that she does have anxiety at baseline and feels this is making it worse. Denies any history of lung disease or immunocompromise. Den ies any fever, chills, nausea, vomiting, sore throat or sick contacts. Has been using an albuterol inhaler about 3-4 times daily for wheezing symptoms with some relief. Otherwise, is not taking medication for symptoms. Review of Systems Constitutional: Negative for chills, fatigue and fever. HENT: Negative for congestion, sore throat and trouble swallowing. Respiratory: Positive for cough, shortness of breath and wheezing. Gastrointestinal: Negative for nausea and vomiting. All other systems reviewed and are negative. Vitals: 11/10/25 0934 BP: 111/80 BP Location: Left arm Patient Position: Sitting Cuff Size: Medium Pulse: 70 Resp: 18 Temp: 36.6 ??C (97.9 ??F) TempSrc: Oral SpO2: 99% Weight: 61.2 kg (135 lb) Objective: Physical Exam Vitals reviewed. Constitutional: General: She is not in acute distress. Appearance: Normal appearance. She is not ill-appearing or toxic-appearing. HENT: Head: Normocephalic. Right Ear: Tympanic membrane, ear canal and external ear normal. Left Ear: Tympanic membrane, ear canal and external ear normal. Nose: Nose normal. Mouth/Throat: Mouth: Mucous membranes are moist. Eyes: Conjunctiva/sclera: Conjunctivae normal. Cardiovascular: Rate and Rhythm: Normal rate. Heart sounds: Normal heart sounds. Pulmonary: Effort: Pulmonary effort is normal. No respiratory distress. Breath sounds: Normal breath sounds. No wheezing, rhonchi or rales. Comments: Breathing comfortably on exam. Speaking full sentences. Musculoskeletal: Cervical back: Neck supple. No tenderness. Lymphadenopathy: Cervical: No cervical adenopathy. Skin: General: Skin is warm and dry. Neurological: Mental Status: She is alert. Psychiatric: Mood and Affect: Mood normal. Behavior: Behavior normal. No results found for this visit on 11/10/25. Procedure: Procedures Assessment/Plan: Diagnosis Plan 1. Subacute cough XR Chest MDM Patient seen and evaluated for concerns of an ongoing cough as above. Vitals and exam reassuring atthis time, no appreciable adventitious lung sounds on auscultation. Chest x-ray personally reviewedby me shows no evidence of patchy infiltrate or concerns for acute process at this time. Discussed symptoms likely related to a postviral cough. Discussed treatment with continued albuterol use as well as course of prednisone. Patient reports tapered courses have worked for her in the past. Prednisone precautions advised, Rx sent to pharmacy. Low suspicion for sepsis, pneumonia, pneumothorax, PE at this time. Advised patient to follow-up with PCP if symptoms do not improve with prednisone course or if symptoms worsen. She will report to the ER for trouble breathing, high fevers or any other concerning symptoms. She agrees with this plan, questions answered. documented in this encounter Plan of Treatment Not on file documented as of this encounter Procedures Procedure Name Priority Date/Time Associated Diagnosis Comments XR CHEST PA AND LATERAL 2 VIEWS Urgent/patient waiting 11/10/2025 10:18 AM EST Subacute cough documented in this encounter Results * XR CHEST PA AND LATERAL 2 VIEWS (11/10/2025 10:18 AM EST) Anatomical Region Laterality Modality Chest Computed Radiogr aphy 11/10/2025 11:2 2 AM EST Impressions 11/10/2025 11:24 AM EST No acute cardiopulmonary radiographic abnormality. Narrative 11/10/2025 11:24 AM EST XR CHEST PA AND LATERAL 2 VIEWS Referring clinician's provided indication for this examination in [facility]: Cough; x 6 weeks, rattling. s/p two courses of azithromycin COMPARISON: None FINDINGS: Devices/Tubes/Lines: None. Lungs: The lungs are clear. No focal consolidation or pulmonary edema. Pleura: No pleural effusion or pneumothorax. Heart/Mediastinum: The heart and mediastinum are normal. Bones/Soft Tissues: No significant skeletal abnormality. Procedure Note Kody Farris MD - 11/10/2025 XR CHEST PA AND LATERAL 2 VIEWS Referring clinician's provided indication for this examination in [facility]:Cough; x 6 weeks, rattling. s/p two courses of azithromycin COMPARISON: None FINDINGS: Devices/Tubes/Lines: None. Lungs: The lungs are clear. No focal consolidation or pulmonary edema. Pleura: No pleural effusion or pneumothorax. Heart/Mediastinum: The heart and mediastinum are normal. Bones/Soft Tissues: No significant skeletal abnormality. IMPRESSION: No acute cardiopulmonary radiographic abnormality. Ana Malloy PA-C, MS IMG XR CHEST Fi nal Result documented in this encounter Visit Diagnoses Diagnosis Subacute cough- Primary documented in this encounter Care Teams Benefits Manager Relationship Specialty Start Date End Date Jeremy Stewart MD [address] [place] [address] [place] [address] PCP - General 05/13/14 documented as of this encounter Additional Source Comments The information contained in this document represents components of the legal health record. It is not the complete legal health record.[facility]
--- OUTSIDE RECORDS SUMMARY | 2025-11-10 10:05 | XMS_ITS | Encounter Summary ---
Author Organization [facility] Address [address] [place] [phone] Phone Care Team Providers Care Forensic Engineer Name Role Phone Jeremy Stewart MD Primary Care Provider Encounter Details Date Type Department Care Team (Late st Contact Info) Description 11/10/2025 10:05 AM [facility] Hospital Encounter [facility] [address] [place] [address] [phone] Ana Malloy PA-C, MS [address] [place] [address] [email or web address] Arrived Social History Tobacco Use Types Packs/Day Years [...] on file documented as of this encounter Plan of Treatment Not on [...] clinician's provided indication for this examination in [facility]: Cough; x 6 weeks, rattling. s/p [...] clinician's provided indication for this examination in [facility]:Cough; x 6 weeks, rattling. s/p two [...] Result documented in this encounter Visit Diagnoses Not on filedocumented in this encounter Care Teams Forensic Engineer Relationship Specialty Start Date End Date Jeremy Stewart MD [address] [place] [address] [place] [address] PCP - General 05/13/14 documented as of this encounter Additional Source Comments The information contained in this document represents components of the legal health record. It is not the complete legal health record.[facility]
[2025-11-10 23:02] VITALS: BP 116/69; PULSE 76; RESP 16; TEMP 36.8; O2SAT 96; BMI 21.8
[2025-11-10 23:49] LABS: COVID-19 Test Negative (Negative); IDNOW Serial# 58CA691E; Influenza B2 Negative (Negative)
--- OUTSIDE RECORDS SUMMARY | 2025-11-11 01:15 | XMS_ITS | Encounter Summary ---
Author Organization [facility] Address [address] [place] [address] Phone Care Team Providers Care Construction Site Crossing Guard Name Role Phone Jeremy Stewart MD Primary Care Provider Encounter Details Date Type Department Care Team (Late st Contact Info) Description 09/01/2017 Procedure Pass MRI, [facility] - [address], [address] [place] [phone] Social History Tobacco Use Types Packs/Day Years Used Date Smoking Tobacco: Never Comments Unknown Sex and Gender Information Value Date Recorded Sex Assigned at Not on file Legal Sex Female 6:20 PM EST Gender Identity Not on file Sexual Orientation Not on file documented as of this encounter Plan of Treatment Not on file documented as of this encounter Visit Diagnoses Not on filedocumented in this encounter Care Teams Construction Site Crossing Guard Relationship Specialty Start Date End Date Jeremy Stewart MD [address] [place] [address] [place] [address] PCP - General 05/13/14 documented as of this encounter Additional Source Comments The information contained in this document represents components of the legal health record. It is not the complete legal health record.[facility]
--- OUTSIDE RECORDS SUMMARY | 2025-11-11 01:15 | XMS_ITS | Encounter Summary ---
Author Organization [facility] Address [address] [place] [address] Phone Care Team Providers Care Sheet Metal Engineer Name Role Phone Jeremy Stewart MD Primary Care Provider Encounter Details Date Type Department Care Team (Late st Contact Info) Description 05/12/2018 Procedure Pass [facility] [address] [place] [address] Social History Tobacco Use Types Packs/Day Years [...] on filedocumented in this encounter Care Teams Sheet Metal Engineer Relationship Specialty Start Date End Date Jeremy Stewart MD [address] [place] [address] [place] [address] PCP - General 05/13/14 documented as of this encounter Additional Source Comments The information contained in this document represents components of the legal health record. It is not the complete legal health record.[facility]
--- OUTSIDE RECORDS SUMMARY | 2025-11-11 01:15 | XMS_ITS | Clinical Summary ---
Author Organization [facility] Address [facility] [address] [place] [address] Phone Care Team Providers Care Hemming And Tacking Machine Operator Name Role Phone Jeremy Stewart MD Primary Care Provider Allergies No known active allergies Medications diclofenac sodium (VOLTAREN) 75 MG EC tablet Take 75 mg by mouth daily. Active LORAZEPAM ORAL Take by mouth as needed. Active cyclobenzaprin e (FLEXERIL) 5 MG tablet TK 1 T PO UP TO BID PRF MUSCLE SPASM 0 08/08/ 8 Active DULoxetine (CYMBALTA) 20 MG capsule 1 capsule. Active albuterol 90 mcg/actuation inhaler INHALE 1 PUFF BY MOUTH EVERY 4 HOURS NEEDED for 33 Active cetirizine (ZYRTEC) 10 MG tablet 1 tablet as needed Orally Once a day Active ibuprofen (ADVIL,MOTRIN) 800 MG tablet 1 tablet with food or milk as needed Orally Three times a day for 30 Active norgestimate-e thinyl estradioL (TRI-SPRINTEC, 28,) 0.18/0.215/0.2 5 mg-0.035mg (28) Tab 1 tablet Orally Once a day for 28 day(s) Active predniSONE (DELTASONE) 20 MG tablet Take 3 tabs po qd x 3 days, then 2 tabs po qd x 3 days, then 1 tab po qd x 3 days, then 1/2 tab po qd x 4 days. Take with food. Do not utilize NSAIDs such as ibuprofen or naproxen while taking this medicine. Be cautious in the sun as this medicine can cause severe sunburns. Stop medicine immediately and call your doctor for development of severe mental health side effects. 20 tablet 5 Active mupirocin (BACTROBAN) 2 % ointment Apply topically 3 (three) times a day for 7 days. 22 g 5 11/10/20 25 Discontin ued(Error ) Active Problems Problem Noted Date Diagnosed Date DJD (degenerative joint disease) of cervical spi ne 08/22/2018 Spondylosis of lumbosacral r egion without myelopathy or radiculopathy 08/22/2018 Encounters Date Type Department Care Team Description 11/10/2025 10:05 AM EST Hospital Encounter [facility] [address] [place] [address] Ana Malloy PA-C, MS Arrived 11/10/2025 10:00 AM EST Nurse Only [facility] at [address] [address] Ana Malloy PA-C, MS Subacute cough (Primary Dx) from Last 3 Months Family History Medical History Relation Comments Heart attack Father myocardial infar ction Prostate cancer Father prostate cancer Osteoarthritis Mother Uncoded Family History Mother elevated cholesterol Colon cancer Unspecified colon cancer; gr andmother Relation Status Comments Father Alive Mother Alive Unspecified Social History Tobacco Use Types Packs/Day Years [...] file Not on file Not on file Last Filed Vital Signs Vital Sign Reading Time Taken Comments Blood Pressure 111/80 11/10/2025 9:34 AM EST Pulse 70 11/10/2025 9:34 AM EST Temperature 36.6 C (97.9 F) 11/10/2025 9:34 AM EST Respiratory Rate 18 11/10/2025 9:34 AM EST Oxygen Saturation 99% 11/10/2025 9:34 AM EST Inhaled Oxygen Concentration - - Weight 61.2 kg (135 lb) 11/10/2025 9:34 AM EST Height 167.6 cm (5' 6 ) 11/06/2023 9:12 AM EST Body Mass Index 21.79 11/06/2023 9:12 AM EST Plan of Treatment Health Maintenance Due Date Last Done Comments LIPID PANEL 1979 DEPRESSION SCREENING 1991 HEPATITIS C SCREENING 1997 HIV ONE-TIME SCREENING (18-6 5 YEARS) 1997 PAP SMEAR 2000 MAMMOGRAM 2019 COLOGUARD 2024 COLONOSCOPY 2024 COLORECTAL CANCER SCREENING 2024 FIT TEST 2024 FOBT 2024 SIGMOIDOSCOPY 2024 VIRTUAL COLONOSCOPY 2024 INFLUENZA VACCINE (#1) 2025 , 12/10/2017 COVID-19 VACCINE (2024-2 6 season) 2025 06/28/2021, 05/31/2021, 05/03/2021 Adult Td,Tdap Booster 12/10/2027 12/10/2017 SMOKING STATUS SCREENING (On ce After 26 Yrs) Completed 11/10/2025 HEPATITIS A VACCINES Aged Out No long er eligible based on patient's age to complete this topic HIB VACCINES Aged Out No longer eligi ble based on patient's age to complete this topic MENINGOCOCCAL VACCINES (ACWY) Aged Out No longer eligible based on patient's age to complete this topic MENINGOCOCCAL VACCINES (B) Aged Out N o longer eligible based on patient's age to complete this topic PNEUMOCOCCAL VACCINES (0-49 years) Aged Out No longer eligible b ased on patient's age to complete this topic Medical Devices Not on file Procedures Procedure Name Priority Date/Time Associated Diagnosis Comments XR CHEST PA AND LATERAL 2 VIEWS Urgent/patient waiting 11/10/2025 10:18 AM EST Subacute cough from Last 3 Months Results * XR CHEST PA AND LATERAL 2 VIEWS (11/10/2025 10:18 AM EST) Anatomical Region Laterality Modality Chest Computed Radiogr aphy 11/10/2025 11:2 2 AM EST Impressions 11/10/2025 11:24 AM EST No acute cardiopulmonary radiographic abnormality. Narrative 11/10/2025 11:24 AM EST XR CHEST PA AND LATERAL 2 VIEWS Referring clinician's provided indication for this examination in [facility]: Cough; x 6 weeks, rattling. s/p two [...] clinician's provided indication for this examination in [facility]:Cough; x 6 weeks, rattling. s/p two courses of azithromycin COMPARISON: None FINDINGS: Devices/Tubes/Lines: None. Lungs: The lungs are clear. No focal consolidation or pulmonary edema. Pleura: No pleural effusion or pneumothorax. Heart/Mediastinum: The heart and mediastinum are normal. Bones/Soft Tissues: No significant skeletal abnormality. IMPRESSION: No acute cardiopulmonary radiographic abnormality. Ana Malloy PA-C, MS IMG XR CHEST Fi nal Result from Last 3 [place] [id number] [facility] Member Subscriber Plan / Payer (Ef fective 2017-Present) Name:Leti De Paz Relation to Subscriber:Self Name:Leti De Paz Payer ID:[id number] (NAIC) Type:PPO Address: [address] Member Subscriber Plan / Payer (Ef fective 2023-Present) Name:Leti De Paz Relation to Subscriber:Self Name:Baldev Leti Payer ID:Not on file Type:PPO Address: [address] [facility] CIG PPO CIGNA PPO [place], [place] CIGNA PPO [facility] [place], [place] CIGODETTE PPO [facility] Care Teams Hemming And Tacking Machine Operator Relationship Specialty Start Date End Date Jeremy Stewart MD [address] [place] [address] [address] [place] [address] PCP - General 05/13/14 Additional Source Comments The information contained in this document represents components of the legal health record. It is not the complete legal health record.[facility]
--- OUTSIDE RECORDS SUMMARY | 2025-11-11 01:15 | XMS_ITS | Encounter Summary ---
Author Organization [facility] Address [address] [place] [address] Phone Care Team Providers Care Still Operator Helper Name Role Phone Jeremy Stewart MD Primary Care Provider Encounter Details Date Type Department Care Team (Late st Contact Info) Description 11/02/2018 Procedure Pass [facility] [address] [place] [address] Social History Tobacco Use Types Packs/Day Years Used Date Smoking Tobacco: Never Alcohol Use Standard Drinks/Week Comments Yes 4 (1 standard drink = 0.6 oz pur e alcohol) Comments Unknown Sex and Gender Information Value [...] on filedocumented in this encounter Care Teams Still Operator Helper Relationship Specialty Start Date End Date Jeremy Stewart MD [address] [place] [address] [place] [address] PCP - General 05/13/14 documented as of this encounter Additional Source Comments The information contained in this document represents components of the legal health record. It is not the complete legal health record.[facility]
--- OUTSIDE RECORDS SUMMARY | 2025-11-11 01:15 | XMS_ITS | Patient Health Record ---
Author Organization Jeremy Stewart MD Address [address] [place] [phone] Care Team Providers Care Reinforcing Metal Worker Name Role Phone Jeremy Stewart Primary Care Provider [phone] Allergies No Known Allergies Results Component Value Reference Range Notes COVID-19 ID NOW (Javier) (No t yet reviewed by provider) Interpretation: Performing Lab:[facility], [address] [place] [id number] Notes/Report: IDNOW Serial# [id number] COVID-19 Test Negative Negative COVID-19 Note See Note Results are for the identification of SARS-CoV2 RNA. The SARS-CoV2 RNA is generally detectable in respiratory samples during the acute phase of infection. Positive results are indicative of the presence of SARS-CoV-2 RNA; clinical correlation with patient history and other diagnostic information is necessary to determine patient infection status. Positive results do not rule out bacterial infection or co-infection with other viruses. Testing facilities within the [facility] and its territories are required to report all positive results to the appropriate public health authorities. Negative results should be treated as presumptive and, if inconsistent with clinical signs and symptoms or necessary for patient management, should be tested with different authorized or cleared molecular tests. Negative results do not preclude SARS-CoV2 RNA infection and should not be used as the sole basis for patient management decisions. Negative results should be considered in the context of a patient's recent exposures, history and the presence of clinical signs and symptoms consistent with COVID-19. This test has been authorized by the FDA under an Emergency Use Authorization (EUA) for use by authorized laboratories. Testing performed on the Javier ID NOW utilizing NAAT. Influenza A B2 ID NOW (Abbot t) (Not yet reviewed by provider) Interpretation: Performing Lab:[facility], [address] [place] [phone] Notes/Report: IDNOW Serial# [id number] Influenza A Negative Negative Influenza B2 Negative Negative Influenza A B2 Note See Note The Javier ID NOW Influenza A B2 test is used for the qualitative detection of influenza A and B from patients with signs and symptoms of respiratory infection. Negative results do not preclude influenza virus infection and should not be used as the sole basis for diagnosis, treatment or other patient management decisions. There is a risk of false negative results due to the presence of variants in the viral targets of the assay, low levels of virus in the specimen and co-infection with Respiratory Syncytial Virus. Reason For Referral No Information Medications Medication SIG (Take, Route, Frequency, Duration) Notes Start Date End Date Status ZyrTEC Allergy 10 MG 1 tablet as [...] M OUTH EVERY DAY for 90 Active Cymbalta 20 MG 1 capsule Orally [...] a day for 5 day(s) 10/18/2025 Active Immunizations Vaccine Route Administration Date Status Comme nts Flu Vaccine IM Intramuscular 11/28/2012 Administered TDaP IM Intramuscular 12/10/2017 Administered Pt was given the vaccine at [facility] Tetanus Unknown 12/10/2017 Administered Fluarix Quadrivalent Unknown 08/04/2020 Administered At work SARS-COV-2 Moderna Unknown 04/30/2021 Administered SARS-COV-2 Moderna Unknown 05/31/2021 Administered SARS-COV-2 Moderna Unknown 06/28/2021 Administered Tetanus Unknown 12/10/2017 Pending Social History Tobacco Use: Social History Observation Description Date Details (start date - stop date) Never Smoker NA - NA Tobacco Use/Smoking Question Answer Notes Patient is a nonsmoker Additional Findings: Tobacco Non-User Cu rrent non-smoker, currently using no form of tobacco Alcohol Screen Question Answer Notes Did you have a drink contain ing alcohol in the past year? Yes How often did you have a dri nk containing alcohol in the past year? Monthly or less (1 point) How many drinks did you have on a typical day when you were drinking in the past year? 1 or 2 drinks (0 point) How often did you have 6 or more drinks on one occasion in the past year? Never (0 point) Points 1 Interpretation Negative Problems Problem Type SNOMED Code ICD Code Onset Dates Problem Status W/U Status Risk Notes Problem 159773227 Neuropathy (G62.9) Active confirmed Problem 32001361 Restless leg syndrome (G25.81) Active confirmed Problem 514708157 Reflux esophagitis (K21.00) Active confirmed Problem 70854923 Anxiety (F41.9) Active confirmed Problem 53076103 Acute recurrent maxillary sinusitis (J01.01) Active confirmed Problem 21828781 Lumbar disc disease (M51.9) Active confirmed Problem 261234293 Migraine without aura and without status migrainosus, not intractable (G43.009) Active confirmed Problem 30827808 Dysthymia (F34.1) Active confirmed Problem 573130476 Acute bilateral low back pain with sciatica, sciatica laterality unspecified (M54.40) Active confirmed Problem 050051855 Moderate persistent asthmatic bronchitis without complication (J45.40) Active confirmed Problem 218409101 Liver lesion (K76.9) Active confirmed Problem 28812538 Menstrual period s irregular (N92.6) Active confirmed Problem 43788643 Frontal sinusitis, unspecified chronicity (J32.1) Active confirmed Vital Signs Height 66 in 10/18/2025 weight is 135 B P not taken no temp Weight 135 lbs 10/18/2025 weight is 135 B P not taken no temp BMI 21.79 kg/m2 10/18/2025 weight is 135 B P not taken no temp Encounters Encounter Location Date Provider Diagnosis Jeremy Stewart MD [address] [place] [phone] 09/10/2025 Jeremy Stewart Bronchitis J40 Jeremy Stewart MD [address] [place] [phone] 10/18/2025 Jeremy Stewart Bronchitis J40 Jeremy Stewart MD [address] [place] [address] [phone] 06/07/2025 Jeremy Stewart Assessments Encounter Date Diagnosis (ICD Code) Assessment Notes Treatment Notes Treatment Clinical Notes Section Notes 09/10/2025 Bronchitis (ICD-10 - J40) 10/18/2025 Bronchitis (ICD-10 - J40) have her use her inhaler and use afrin before she flies for a few days to keep sinuses uncongested, patient verbalized nderstanding of medication and directions for use Plan Of Treatment Pending Test Test Name Order Date CT NECK WITH CONTRAST 07/24/2018 24 hour holter monitor 02/12/2019 COVID-19 ID NOW (Javier) 11/10/2025 Influenza A B2 ID NOW (Javier) Future Test Test Name Order Date [facility] 05/09/2020 Insurance Providers Payer Name Payer Address Payer Phone Subscriber Number Group Number Insured Name Patient Relationship to Insured Coverage Start Date Coverage End Date [employer] [address] [place], [place] [id number] Leti CREWS Self - patient is the insured Medical (General) History Medical History History ICD Code lung nodule follow up was do ne and was negative. no need for further follow up fractured neck skull fracture Depression with anxiety
--- OUTSIDE RECORDS SUMMARY | 2025-11-11 01:15 | XMS_ITS | Patient Health Record ---
[facility] Address [address] [place] [address] Care Team Providers Care Analog Design Engineer Name Role Phone Jeremy Stewart MD Primary Care Provider Micaela Bridges Unavailable [phone] Allergies Allergen (clinical drug ingredient) Drug/Non Drug Allergy documented on EMR Reaction Allergy Type Onset Date Status Biaxin Unknown Drug Allergy Active erythromycin Erythromycin Unknown Drug Allergy A ctive Z Pac upset stomach Drug Allergy Act gage Reason For Referral No Information Medications Medication SIG (Take, Route, Frequency, Duration) Notes Start Date End Date Status Ortho Tri-Cyclen Lo 0.18/0.215/0.25 MG-25 MCG 1 tablet Orally Once a day; Duration: 28 day(s) Active Problems Problem Type SNOMED Code ICD Code Onset Dates Problem Status W/U Status Risk Notes Problem Pain in limb (53422243) Pain in Limb (729.5) Active confirmed Problem Verruca plantaris (13601902) Verruca Plantaris (078.19) Active confirmed Problem Disorder of sebaceous gland (1202840) Xerosis (706.8) Active confirmed Plan Of Treatment Pending Test Test Name Order Date [id number] Chadwick, 1-14 07/12/2012 Insurance Providers Payer Name Payer Address Payer Phone Subscriber Number Group Number Insured Name Patient Relationship to Insured Coverage Start Date Coverage End Date Cigna [address] [place] [phone] [id number] Leti De Paz Self - patient is the insured Medical (General) History Medical History History ICD Code chicken pox Surgical History Surgery Date(Month/Year) spinal fusion 04/2011
--- OUTSIDE RECORDS SUMMARY | 2025-11-11 01:15 | XMS_ITS | Encounter Summary ---
Author Organization [facility] Address [address] [place] [address] Phone Care Team Providers Care Manager Plan Name Role Phone Jeremy Stewart MD Primary Care Provider Encounter Details Date Type Department Care Team (Late st Contact Info) Description 12/11/2018 Procedure Pass [facility] [address] [place] [address] Social History Tobacco Use Types Packs/Day Years [...] on filedocumented in this encounter Care Teams Manager Plan Relationship Specialty Start Date End Date Jeremy Stewart MD [address] [place] [address] [place] [address] PCP - General 05/13/14 documented as of this encounter Additional Source Comments The information contained in this document represents components of the legal health record. It is not the complete legal health record.[facility]
--- OUTSIDE RECORDS SUMMARY | 2025-11-11 01:15 | XMS_ITS | Clinical Summary ---
Author Organization [facility] it Address [address] [place] [address] Care Team Providers Care Oven Attendant Name Role Phone Unavailable Primary Care Provider Unavailabl e Social History Tobacco Use Types Packs/Day Years Used Date Smoking Tobacco: Never Assessed Comments Unknown Sex and Gender Information Value Date Recorded Sex Assigned at Not on file Legal Sex Female 8:38 PM EST Gender Identity Not on file Sexual Orientation Not on file Plan of Treatment Health Maintenance Due Date Last Done Comments Breast Cancer Screening 1979 DTaP,Tdap,and Td Vaccines (1 - Tdap) 1998 Hepatitis B Vaccines (1 of 3 - 19+ 3-dose series) 1998 Cervical Cancer Screening: P ap Smear 2000 HPV Vaccines (1 - 3-dose SCD M series) 2006 Depression Screening 11/14/2024 COVID-19 Vaccine (1 - 2024-2 6 season) 2025 Influenza Vaccine (#1) 2025 RSV Immunization Adult Patie nts (1 - 1-dose 75+ series) 2054 HIB Vaccines Aged Out No longer eligi ble based on patient's age to complete this topic Hepatitis A Vaccines Aged Out No long er eligible based on patient's age to complete this topic IPV Vaccines Aged Out No longer eligi ble based on patient's age to complete this topic MMR Vaccines Aged Out No longer eligi ble based on patient's age to complete this topic Meningococcal ACWY Vaccine Aged Out N o longer eligible based on patient's age to complete this topic Meningococcal B Vaccine Aged Out No l onger eligible based on patient's age to complete this topic Pneumococcal Vaccine: Pediat rics (0 to 5 Years) and At-Risk Patients (6 to 49 Years) Aged Out No longer eligible b ased on patient's age to complete this topic RSV Immunization Patients Un travis 20 months Aged Out No longer eligible b ased on patient's age to complete this topic Varicella Vaccines Aged Out No longer eligible based on patient's age to complete this topic
--- NOTE | 2025-11-11 01:31 | PC.NURSE ---
pt requested to leave. agreeable to waiting in [facility] at this time as this is only availability within ed. awaits eval by ed provider.
== END 2025-11-11 02:05 | disposition left against medical advice (07) ==
PROVIDERS: Emergency Provider Emergency Medicine; PCP Internal Medicine
DX: R06.02 Shortness of breath (principal); Z11.52 Encounter for screening for COVID-19
CPT/HCPCS: 87502; 87635; 99281